=== PATIENT | female | born 1985 | race Caucasian/White ===

== ENCOUNTER 2020-08-26 15:00 | Emergency (ER) | payer SELFPAY ==
[2020-08-26 15:08] VITALS: BP 146/65; PULSE 88; RESP 18; TEMP 36.7; O2SAT 100; BMI 28.3
[2020-08-26 15:11] VITALS: BP 105/60; PULSE 75; RESP 18; TEMP 36.8; O2SAT 100
--- NOTE | 2020-08-26 15:30 | ED_ITS ---
HPI - General: Chief complaint: Vaginal Bleeding Stated complaint: & Spotting (unsure of wks) Time Seen by Provider: 08/26/20 15:29 History of Present Illness: HPI Narrative: Patient is a G5, P4 35-year-old 10 to 12-week female who comes to the ED with vaginal bleeding. Bleeding started today and she describes it as very light spotting. She is also having some intermittent lower abdominal and low back cramping pain. She describes the pain is mild. She has not taken any [id number] pain meds such as Tylenol before coming to the ED and she says she does not need any pain meds here in the ED. Denies any dysuria, hematuria, fever, chills or bowel symptoms. Last menstrual period was June 03. Patient did say she is Rh-negative and has had to get the RhoGam shot in the past with her pregnancies. Associated symptoms: Reports abdominal pain (Lower abdomen cramping); Deny dysuria, headache(s), nausea or vomiting Review of Systems Const: Denies: fever(s), chills or fatigue Eyes: Denies: change in vision or eye discomfort ENMT: Denies: throat pain, odynophagia, nasal discharge or nasal congestion Card: Denies: chest pain, palpitations, edema, swelling of feet/ankles, dyspnea on exertion or orthopnea Resp: Denies: dyspnea, productive cough or non-productive cough GI: Reports: abdominal pain (Lower abdomen cramping); Denies: nausea, vomiting, diarrhea, constipation or hematochezia : Reports: vaginal bleeding (Spotting) and pelvic pain (Mild); Denies: flank pain, difficulty voiding, dysuria, urinary frequency, urinary urgency or hematuria Musc: Denies: neck pain, back pain or extremity swelling Skin/Breast: Denies: rash or new lesions Neuro: Denies: headache(s), numbness in extremities or weakness in extremities Physical Exam Narrative: EXAM NARRATIVE: Patient is healthy looking 35-year-old female that is in no acute distress or pain. She sitting comfortably on exam bed. She had no palpable tenderness over the abdomen. No CVA tenderness. Const: COMMON NORMALS: no acute distress, patient oriented x3, healthy appearing and alert GENERAL APPEARANCE: cooperative and comfortable HENMT: COMMON NORMALS: normocephalic HEAD & SCALP: normocephalic MOUTH: Normal oral and palatal mucosa present THROAT: posterior oropharynx normal and uvula midline Eye: COMMON NORMALS: Equal, round and reactive pupils present PUPIL: Yes Equal, round and reactive pupils present Neck/C-Spine: COMMON NORMALS: supple GENERAL: Yes normal visual inspection Resp: COMMON NORMALS: normal respiratory effort, No retractions, No use of accessory muscles and clear to auscultation bilaterally AUSCULTATION: clear to auscultation bilaterally Cardio: COMMON NORMALS: regular rate, regular rhythm, S1 normal heart sound present, S2 normal heart sound present, No gallops present (Cardio), No clicks present (Cardio), No murmurs present (Cardio) and Peripheral pulses 2+ throughout RATE: regular rate RHYTHM: regular rhythm HEART SOUNDS: S1 normal heart sound present and S2 normal heart sound present PERIPHERAL PULSES: Peripheral pulses 2+ throughout GI: COMMON NORMALS: Normal to inspection, nondistended, normoactive bowel sounds present, Soft to palpation, non-tender and no masses PALPATION: Yes S oft to palpation OTHER: Patient has no palpable abdominal tenderness. : COMMON NORMALS: Yes no CVA tenderness BLADDER/KIDNEY EXAM: Yes no CVA tenderness Back/Pelvis: COMMON NORMALS: no CVA tenderness Extremity: COMMON NORMALS: normal to inspection and no pedal edema Neuro: COMMON NORMALS: patient oriented x3 and moves all extremities SENSORIUM/ORIENTATION: Yes alert Skin: GENERAL SKIN EXAM: dry skin Course Vital Signs: Vital signs: Vital Signs Temperature 98.2 F 08/26/20 17:39 Pulse Rate 80 08/26/20 17:48 Respiratory Rate 14 08/26/20 17:48 Blood Pressure 111/55 08/26/20 17:48 Pulse Oximetry 97 08/26/20 17:39 MDM - OB/Uterine Contractions MDM Narrative: Medical decision making narrative: Patient is a 35-year-old 10-week female comes to the ED with vaginal bleeding. The bleeding is light and described as spotting and started today. Patient says she has had to get the RhoGam shot in each one of her pregnancies. Patient's hCG quant was 68,445. CBC unremarkable. Rh negative. UA was suggestive for UTI. Ultrasound showed a healthy 9-week single intrauterine , with no other acute findings. Patient received RhoGam shot while here in the ED. Patient was diagnosed with spotting during and UTI. She was sent home with a prescription for Macrobid. Return to ED precautions given. Patient will follow up with her OB at next scheduled appointment. Patient understood and agreed with plan. Lab Data: Attestation: I reviewed the patient's lab results. Labs: Lab Results 08/26/20 08/26/20 08/26/20 Range/Units 15:45 15:45 16:00 WBC 8.4 (4.0-10.0) 10^3/ uL RBC 4.34 (4.1-5.3) 10^6/u L Hgb 13.8 (11.5-15.3) g/dL Hct 39.1 (37.0-47.0) % MCV 90.1 (81-99) fL MCH 31.8 (28.0-34.0) pg MCHC 35.3 (30.0-36.0) g/dL RDW 13.0 (12.1-15.1) % Plt Count 276 (130-400) 10^3/c mm MPV 8.6 (7.4-10.4) fL Neut % (Auto) 66.2 % Lymph % (Auto) 26.2 % [place] % (Auto) 5.6 % Eos % (Auto) 1.2 % Baso % (Auto) 0.2 % Neut # (Auto) 5.57 (1.8-7.7) 10^3/u L Lymph # (Auto) 2.2 (0.8-4.8) 10^3/u L [place] # (Auto) 0.5 (0.2-0.9) 10^3/u L Eos # (Auto) 0.1 (0.0-0.8) 10^3/u L Baso # (Auto) 0.0 (0.0-0.1) 10^3/u L Nucleated RBC % (a uto) 0 % Nucleated RBCs # 0.0 /100WBC Ser , Adiel [place]Qnt 61567.00 mIU/mL Urine Color (Yellow) Urine Appearance (CLEAR) Urine pH (5-7) Ur Specific Gravit y (1.005-1.030) Urine Protein (Negative) Urine Glucose (UA) (Normal) Urine Ketones (Negative) Urine Blood (Negative) Urine Nitrate (Negative) Urine Bilirubin (Negative) Urine Urobilinogen (Negative) mg/dL Ur Leukocyte Yoanna ase (Negative) Urine RBC (0-2) /hpf Urine WBC (0-5) /hpf Ur Squamous Epith Cells (0-5) /hpf Amorphous Sediment Urine Bacteria (NONE) /hpf Blood Type A Negative Rho(D) Type Negative Antibody Screen Negative 08/26/20 Range/Units 16:45 WBC (4.0-10.0) 10^3/ uL RBC (4.1-5.3) 10^6/u L Hgb (11.5-15.3) g/dL Hct (37.0-47.0) % MCV (81-99) fL MCH (28.0-34.0) pg MCHC (30.0-36.0) g/dL RDW (12.1-15.1) % Plt Count (130-400) 10^3/c mm MPV (7.4-10.4) fL Neut % (Auto) % Lymph % (Auto) % [place] % (Auto) % Eos % (Auto) % Baso % (Auto) % Neut # (Auto) (1.8-7.7) 10^3/u L Lymph # (Auto) (0.8-4.8) 10^3/u L [place] # (Auto) (0.2-0.9) 10^3/u L Eos # (Auto) (0.0-0.8) 10^3/u L Baso # (Auto) (0.0-0.1) 10^3/u L Nucleated RBC % (a uto) % Nucleated RBCs # /100WBC Ser , Adiel i-Qnt mIU/mL Urine Color Yellow (Yellow) Urine Appearance Cloudy (CLEAR) Urine pH 5 (5-7) Ur Specific Gravit y 1.025 (1.005-1.030) Urine Protein Neg (Negative) Urine Glucose (UA) Norm (Normal) Urine Ketones Negative (Negative) Urine Blood 3+ H (Negative) Urine Nitrate Positive H (Negative) Urine Bilirubin Neg (Negative) Urine Urobilinogen 4 H (Negative) mg/dL Ur Leukocyte Yoanna ase 2+ H (Negative) Urine RBC 5-10 H (0-2) /hpf Urine WBC 15-25 H (0-5) /hpf Ur Squamous Epith Cells 5-10 H (0-5) /hpf Amorphous Sediment Not Reportable Urine Bacteria 4+ H (NONE) /hpf Blood Type Rho(D) Type Antibody Screen Imaging Data^: US OB: Attestation: I personally reviewed and interpreted this imaging study as follows: My impression: US OB report-Healthy 9 week old single intrauterine . No other acute findings. Discharge Plan Discharge Patient Disposition: Home Clinical Impression: Spotting during UTI in Qualifiers: Trimester: first trimester Qualified Code(s): O23.41 - Unspecified infection of urinary tract in , first trimester Condition: Stable Prescriptions: New Macrobid 100 mg capsule 100 mg PO BID 7 Days Qty: 14 RF: 0 No Action Tylenol Extra Strength 500 mg Tablet 1,000 mg PO PRN RF: 0 Gummies 400 mcg-35 mg- 25 mg-5 mg Tablet,Chewable 2 tab PO DAILY RF: 0 Discharge Orders: Discharge ED (Routine); Ordered 08/26/20 Ordered By: Fahad Hernandez Discharge Diet: Regular Discharge Activity: Resume usual activity Patient Instructions: (ED), Urinary Tract Infection in Women (ED) Activity Restrictions/Additional Instructions: Follow-up with your OB at next appointment. take medications as prescribed. Return to the ER or your medical provider if condition worsens. Please read and understand discharge instructions. If any questions, please ask. Coding Level of Care Code ED Rubber Compounder Formulator for Maurizio Fwd Exam Comprehensive
--- NOTE | 2020-08-26 15:37 | USR_ITS ---
PROCEDURE INFORMATION: Exam: US First Trimester, Transabdominal Exam date and time: 08/26/2020 4:10 PM Age: 35 years old Clinical indication: Lmp or gestational age (in weeks): 12 weeks 0 days; Other: Vaginal bleeding; ; Additional info: with vaginal spotting TECHNIQUE: Imaging protocol: Real-time transabdominal obstetrical ultrasound of the maternal pelvis and a first trimester , less than 14 weeks 0 days, with image documentation. COMPARISON: No relevant prior studies available. FINDINGS: Gestation: Intrauterine gestation. pole visualized. Yolk sac not visualized. Embryonic/ heart rate: heart rate is 167 bpm. Placenta: Unremarkable. No subchorionic bleed. Amniotic fluid: Amniotic fluid is normal for gestational age. BIOMETRY: Gestational age (AUA): 12 weeks and 0 days. [place]-Rump length: [place]ge[place]-rump length is 5.3 cm with an EGA of 12 weeks and 0 days. MATERNAL: Uterus: Unremarkable. Cervix: Unremarkable. Right adnexa: Unremarkable. Left adnexa: Unremarkable. Intraperitoneal space: No intraperitoneal free fluid. Other findings: Ovaries not visualized. Adnexa, where visualized, are unremarkable. US/US OB <= 14 weeks fetus [id number] IMPRESSION: Single live intrauterine fetus. EGA based on ultrasound is 12 weeks and 0 days.
[2020-08-26 15:39] VITALS: BP 105/60; PULSE 84; RESP 18; O2SAT 99
[2020-08-26 15:54] LABS: Basophils % 0.2 %; Eosinophils # 0.1 10^3/uL (0.0-0.8); Eosinophils % 1.2 %; Hematocrit 39.1 % (37.0-47.0); Hemoglobin 13.8 g/dL (11.5-15.3); Lymphocytes # 2.2 10^3/uL (0.8-4.8); Lymphocytes % 26.2 %; Mean Corpuscular HGB Conc 35.3 g/dL (30.0-36.0); Mean Corpuscular Hemoglobin 31.8 pg (28.0-34.0); Mean Corpuscular Volume 90.1 fL (81-99); Mean Platelet Volume 8.6 fL (7.4-10.4); Monocytes # 0.5 10^3/uL (0.2-0.9); Monocytes % 5.6 %; Neutrophils # 5.57 10^3/uL (1.8-7.7); Neutrophils % 66.2 %; Nucleated Red Blood Cells % 0 %; Platelet Count 276 10^3/cmm (130-400); Red Blood Count 4.34 10^6/uL (4.1-5.3); White Blood Count 8.4 10^3/uL (4.0-10.0)
[2020-08-26 17:05] LABS: Urine Appearance Cloudy (CLEAR); Urine Color Yellow (Yellow)
[2020-08-26 17:06] LABS: Add Urine Culture? Yes; Bacteria Urine 4+ /hpf; Bilirubin Urine Neg (Negative); Blood Urine 3+ (Negative); Glucose Urine UA Norm (Normal); Ketones Urine Negative (Negative); Leukocyte Esterase Urine 2+ (Negative); Nitrate Urine Positive (Negative); Protein Urine Neg (Negative); Specific Gravity, Urine 1.025 (1.005-1.030); Urobilinogen Urine 4 mg/dL (Negative); WBC Urine 15-25 /hpf (0-5); pH Urine 5 (5-7)
[2020-08-26 17:39] VITALS: BP 111/55; PULSE 78; RESP 18; TEMP 36.8; O2SAT 97
[2020-08-26] MEDS: nitrofurantoin SR (BID) 100 mg Capsule PO (17:47)
[2020-08-26 17:48] VITALS: BP 111/55; PULSE 80; RESP 14
== END 2020-08-26 17:54 | disposition home or self-care (01) ==
PROVIDERS: Emergency Medicine; Emergency Provider Physician Assistant
DX: O26.851 Spotting complicating pregnancy, first trimester (principal); O23.41 Unspecified infection of urinary tract in pregnancy, first trimester; Z3A.09 9 weeks gestation of pregnancy
CPT/HCPCS: 36415; 36430; 76801; 81001; 84702; 85025; 86850; 86900; 87077; 87086; 87186; 90384; 99283

== ENCOUNTER → 2020-12-21 13:58 | Outpatient (BNVA) | payer MEDICAID, SELFPAY | PROVIDERS: Visit Provider Obstetrics & Gynecology | DX: Z34.90 Encounter for supervision of normal pregnancy, unspecified, unspecified trimester (principal); Z12.4 Encounter for screening for malignant neoplasm of cervix | CPT/HCPCS: 80307; 82950; 84315; 85025; 86592; 86762; 86803; 86850; 86900; 87077; 87086; 87184; 87340; 87491; 87591; 87661; 87806; 88175 ==

== ENCOUNTER → 2021-01-01 07:53 | Day surgery (SDC) | payer MEDICAID, SELFPAY ==
[2021-01-01 08:20] VITALS: BP 124/79; PULSE 99; RESP 18; TEMP 36.4; O2SAT 100; BMI 36.3
--- NOTE | 2021-01-01 09:01 | PC.NURSE ---
0849 Gentamicin 240mg given IM in 3 different locations, 2ml each. 1 in right gluteal muscle, 1 in left gluteal muscle, 1 left deltoid muscle. Patient tolerated well.
== END ==
PROVIDERS: Visit Provider Obstetrics & Gynecology
DX: O98.219 Gonorrhea complicating pregnancy, unspecified trimester (principal); O98.819 Other maternal infectious and parasitic diseases complicating pregnancy, unspecified trimester; Z3A.00 Weeks of gestation of pregnancy not specified; A74.9 Chlamydial infection, unspecified; A59.9 Trichomoniasis, unspecified
CPT/HCPCS: 96372; J1580

== ENCOUNTER → 2021-01-04 08:20 | Outpatient (BNVA) | payer MEDICAID, SELFPAY | PROVIDERS: Visit Provider Obstetrics & Gynecology | DX: O09.899 Supervision of other high risk pregnancies, unspecified trimester (principal); Z3A.00 Weeks of gestation of pregnancy not specified | CPT/HCPCS: 82951; 82952 ==

== ENCOUNTER 2021-01-10 17:25 | Outpatient (CLI) | payer MEDICAID, SELFPAY ==
[2021-01-10] VITALS (12 sets, daily range): BP systolic 106–130; BP diastolic 52–68; PULSE 78–91; RESP 17–18; TEMP 35.3–36.6; BMI 35.3
[2021-01-10] MEDS: acetaminophen 500 mg Tablet 1000 MG PO (18:16)
[2021-01-10 19:03] LABS: Add Urine Microscopic? YES; Bilirubin Urine Neg (Negative); Blood Urine Neg (Negative); Glucose Urine UA Norm (Normal); Ketones Urine Negative (Negative); Leukocyte Esterase Urine 2+ (Negative); Nitrate Urine Negative (Negative); Protein Urine Neg (Negative); Specific Gravity, Urine 1.015 (1.005-1.030); Urine Appearance SL Hazy (CLEAR); Urine Color Yellow (Yellow); Urobilinogen Urine 4 mg/dL (Negative); pH Urine 6 (5-7)
[2021-01-10 19:07] LABS: Add Urine Culture? Yes; Bacteria Urine 1+ /hpf; Trichomonas Urine TRACE /hpf; WBC Urine 15-25 /hpf (0-5)
[2021-01-10 19:11] LABS: Alanine Aminotransferase 9 U/L (0-33); Albumin Level 3.4 g/dL (3.5-5.2); Alkaline Phosphatase 96 IU/L (35-105); Anion Gap 13.4 (5-19); Aspartate Amino Transferase 14 U/L (0-32); Blood Urea Nitrogen 7 mg/dL (6-20); Calcium 8.4 mg/dL (8.5-10.5); Carbon Dioxide 24 mmol/L (22-29); Chloride 101 mmol/L (98-107); Globulin 3.3 g/dL (1.3-4.6); Glomerular Filtration Rate 180.6 mL/min (90-130); Glucose 84 mg/dL (65-115); Osmolality Calculated 277 mOsm/kg (285-295); Potassium 3.4 mmol/L (3.5-5.1); Sodium 135 mmol/L (136-145); Total Bilirubin 0.7 mg/dL (0.15-1.2); Total Protein 6.7 g/dL (6.6-8.7); Uric Acid 3.4 mg/dL (2.4-5.7)
[2021-01-10 19:24] LABS: Urine Creatinine 75 mg/dL (28-217); Urine Protein Random 10 mg/dL
[2021-01-10 19:27] LABS: UPRO/UCREAT Ratio 0.13 mg/mg CR
--- NOTE | 2021-01-10 19:47 | PC.NURSE ---
Called lab at this time and asked when CBC would be resulted. wardrobe technician stated that the urine had spilled in the bag and the tube was wet and unable to be ran. wardrobe technician states that tube had to sit out and dry before running but that no one from the lab has called the unit to be informed that the run time will be delayed.
[2021-01-10 19:50] LABS: Basophils % 0.3 %; Eosinophils # 0.1 10^3/uL (0.0-0.8); Eosinophils % 0.8 %; Hemoglobin 10.1 g/dL (11.5-15.3); Lymphocytes # 1.4 10^3/uL (0.8-4.8); Mean Corpuscular HGB Conc 33.7 g/dL (30.0-36.0); Mean Corpuscular Hemoglobin 34.5 pg (28.0-34.0); Mean Corpuscular Volume 102.4 fL (81-99); Mean Platelet Volume 9.1 fL (7.4-10.4); Monocytes # 0.4 10^3/uL (0.2-0.9); Monocytes % 5.9 %; Neutrophils # 4.52 10^3/uL (1.8-7.7); Neutrophils % 70.4 %; Nucleated Red Blood Cells % 0 %; Platelet Count 231 10^3/cmm (130-400); Red Blood Count 2.93 10^6/uL (4.1-5.3); Red Cell Distribution Width 13.9 % (12.1-15.1); White Blood Count 6.4 10^3/uL (4.0-10.0)
== END 2021-01-10 20:26 | disposition home or self-care (01) ==
LOC: OPOB 17:27 → OBGYN 17:29
PROVIDERS: Visit Provider Obstetrics & Gynecology
DX: O26.899 Other specified pregnancy related conditions, unspecified trimester (principal); Z3A.00 Weeks of gestation of pregnancy not specified; R51.9 Headache, unspecified
CPT/HCPCS: 36415; 59025; 80053; 81001; 82570; 84156; 84315; 84550; 85025; 87086; 99211

== ENCOUNTER → 2021-01-24 15:06 | Outpatient (BNVA) | payer MEDICAID, SELFPAY | PROVIDERS: Visit Provider Obstetrics & Gynecology | DX: O09.899 Supervision of other high risk pregnancies, unspecified trimester (principal); O26.899 Other specified pregnancy related conditions, unspecified trimester; N89.8 Other specified noninflammatory disorders of vagina; N90.89 Other specified noninflammatory disorders of vulva and perineum; R30.0 Dysuria; Z3A.00 Weeks of gestation of pregnancy not specified | CPT/HCPCS: 81000; 87086; 87481; 87512; 87529; 87798; 87799 ==

== ENCOUNTER → 2021-01-29 15:35 | Outpatient (BNVA) | payer MEDICAID, SELFPAY | PROVIDERS: Visit Provider Nurse Practitioner Women's Health | DX: O09.899 Supervision of other high risk pregnancies, unspecified trimester (principal); O98.319 Other infections with a predominantly sexual mode of transmission complicating pregnancy, unspecified trimester; A64 Unspecified sexually transmitted disease; O99.280 Endocrine, nutritional and metabolic diseases complicating pregnancy, unspecified trimester; E03.9 Hypothyroidism, unspecified; Z3A.00 Weeks of gestation of pregnancy not specified | CPT/HCPCS: 84315; 84439; 84443; 87491; 87591; 87661 ==

== ENCOUNTER → 2021-02-11 13:31 | Outpatient (BNVA) | payer MEDICAID, SELFPAY | PROVIDERS: Visit Provider Obstetrics & Gynecology | DX: O09.899 Supervision of other high risk pregnancies, unspecified trimester (principal); N90.89 Other specified noninflammatory disorders of vulva and perineum; Z3A.00 Weeks of gestation of pregnancy not specified | CPT/HCPCS: 84315; 87081; 87086; 87252 ==

== ENCOUNTER → 2021-02-18 13:39 | Outpatient (BNVA) | payer MEDICAID, SELFPAY | PROVIDERS: Visit Provider Obstetrics & Gynecology | DX: O09.899 Supervision of other high risk pregnancies, unspecified trimester (principal); E03.9 Hypothyroidism, unspecified; O98.319 Other infections with a predominantly sexual mode of transmission complicating pregnancy, unspecified trimester; A64 Unspecified sexually transmitted disease; Z3A.00 Weeks of gestation of pregnancy not specified | CPT/HCPCS: 84315; 84443; 87086; 87491; 87591; 87661 ==

== ENCOUNTER 2021-02-28 00:21 | Inpatient (IN) | payer MEDICAID, SELFPAY ==
[2021-02-27 22:01] VITALS: BP 113/73; PULSE 101
[2021-02-27 23:00] VITALS: BP 130/67; PULSE 73
[2021-02-28] VITALS (35 sets, daily range): BP systolic 105–136; BP diastolic 52–87; PULSE 64–106; RESP 16–18; TEMP 36.3; O2SAT 87–100; BMI 29.9
[2021-02-28 00:54] LABS: Basophils % 0.1 %; Eosinophils % 0.4 %; Hematocrit 32.4 % (37.0-47.0); Hemoglobin 11.1 g/dL (11.5-15.3); Lymphocytes # 1.2 10^3/uL (0.8-4.8); Lymphocytes % 12.6 %; Mean Corpuscular HGB Conc 34.3 g/dL (30.0-36.0); Mean Corpuscular Hemoglobin 32.6 pg (28.0-34.0); Monocytes # 0.4 10^3/uL (0.2-0.9); Monocytes % 3.7 %; Neutrophils # 7.83 10^3/uL (1.8-7.7); Neutrophils % 82.7 %; Nucleated Red Blood Cells % 0 %; Platelet Count 272 10^3/cmm (130-400); Red Blood Count 3.41 10^6/uL (4.1-5.3); Red Cell Distribution Width 13.1 % (12.1-15.1); White Blood Count 9.5 10^3/uL (4.0-10.0)
[2021-02-28] MEDS: fentaNYL 50 mcg/mL INJ 2mL IVP ×2 (01:05→02:05)
--- NOTE | 2021-02-28 03:21 | PM.OPHPUD ---
Labor & Delivery H&P Update Date of Procedure: February 28, 2021 Date H&P Performed: 02/18/21 H&P update information: I have reviewed H&P completed within last 30 days, I have examined patient prior to procedure and Changes to prior documentation as noted here (cervix: 10/100/+3/VX/SROM) Admission Diagnosis:
--- NOTE | 2021-02-28 03:23 | P.PCNOB_ITS ---
Delivery Note: Date of delivery: February 28, 2021 Pre-delivery diagnoses: Term . Advanced maternal age. Post-delivery diagnoses: Same as above Op report anesthesia: Local (lidocaine for laceration repair) Delivering Physician: Marin Tang MD Estimated blood loss (mL): 300 Findings: Female infant at 38+ weeks, APGARS 8/8, with weight 3640 Pre-Delivery Course: Ms. Huang is a 35 year old patient with an LMP of 06/05/21, JULIANA of 03/10/21, based on 12 week sonogram placing her at 38 3/7 weeks. Has been receiving care from [facility]. She has been experiencing painful uterine contractions for the past 4 hours. Was called by the nurse baby had experienced some decelerations, at the same time the patient had a very rapid progression of labor from 3 cm at admission to fully dilated and delivering the baby in 4 hours. CC: Onset of labor at term. HPI: Received appropriate care. Daily vitamins since the start of care. labs have all been normal, including negative for HIV. She was found to negative for Group B Strep from screening at 36 weeks. She has loss approximately 6 lbs throughout the . She denies a history of HTN during . Glucose tolerance screening for gestational diabetes was negative after 3h GTT. Delivery: The patient was noted to be complete and pushing with rapid progression, so she was placed in the dorsal lithotomy position, prepped and draped in the usual sterile fashion for a vaginal delivery. Pt. Noted to have no anesthesia. At 0254 the patient delivered a term at 38+3 weeks female weighing 3640 g with scores of 8 and 8 at one and five minutes, respectively. The vertex was delivered spontaneously over an intact perineum. The patient was asked to push and the head delivered spontaneously in the JANUSZ position, over an intact perineum. A nuchal cord was checked and none noted. Meconium stain was noted. The anterior shoulder delivered easily and the posterior shoulder followed. The remainder of the was easily delivered and the oropharynx and nasopharynx was bulb suctioned. The infant was noted to have spontaneous cry and spontaneous movement of all four extremities. The cord was clamped x 2 and cut and noted to have 2 arteries and one vein. The was passed to the mother's abdomen where production control coordinating clerk and nursing personnel were in attendance. Cord blood sample was then obtained. The placenta delivered intact spontaneously and the uterus was explored. 20 units of Pitocin was placed in the IV bag to firm the uterus. Examination of the cervix and vaginal vault did not reveal any lacerations. A vaginal pack was then placed. Examination of the perineum showed a second-degree laceration. The laceration was repaired with 2-0 Vicryl in the normal fashion in a running non locking fashion to reapproximate the laceration in layers. The vaginal pack was then removed. The patient tolerated this procedure well, and recovered in LDR. Her infant was transfered to the nursery by production control coordinating clerk. All sponge and needle counts were correct. Post-Delivery Status: Good and hemodynamically stable Coding Level of Care Code Acute Sewing Machine Mechanic for Chg Patrice
--- NOTE | 2021-02-28 08:52 | PC.NURSE ---
DFS notified due to late care.
[2021-02-28] MEDS: ibuprofen 800 mg tablet PO ×3 (09:14→20:51)
[2021-02-28] MEDS: docusate sodium 100 mg Capsule PO (09:14)
[2021-02-28] MEDS: prenatal vitamin Capsule 1 CAP PO (09:14)
--- NOTE | 2021-02-28 12:30 | PC.NURSE ---
DFS school commissioner in room at this time. Plan for home study either later today or tomorrow before discharge.
[2021-02-28 15:50] LABS: Hematocrit 30.9 % (37.0-47.0); Hemoglobin 10.3 g/dL (11.5-15.3); Mean Corpuscular HGB Conc 33.3 g/dL (30.0-36.0); Mean Corpuscular Hemoglobin 32.4 pg (28.0-34.0); Mean Corpuscular Volume 97.2 fl (81-99); Platelet Count 288 10^3/cmm (130-400); Red Blood Count 3.18 10^6/uL (4.1-5.3); Red Cell Distribution Width 13.1 % (12.1-15.1); White Blood Count 12.3 10^3/uL (4.0-10.0)
[2021-02-28 17:24] LABS: Rapid Plasma Reagin Syphilis Reactive (Nonreactive)
--- NOTE | 2021-02-28 19:22 | PC.NURSE ---
Called Lab to confirm FTA-ABS would be run as confirmation for Reactive RPR. Lab employee states send off has been automatically ordered and will be done.
[2021-03-01 04:00] LABS: HIV 1 & 2 Antibody Non-Reactive (Non-Reactiv); HIV 1 & 2 Antigen Non-Reactive (Non-Reactiv)
[2021-03-01 04:16] LABS: Hepatitis B Surface Antigen Non-Reactive (Nonreactive); Hepatitis C Virus Antibody Non-Reactive (Nonreactive)
[2021-03-01 04:57] VITALS: BP 121/57; PULSE 77
[2021-03-01] MEDS: prenatal vitamin Capsule 1 CAP PO (08:44)
[2021-03-01] MEDS: ibuprofen 800 mg tablet PO ×2 (08:44→22:13)
[2021-03-01] MEDS: docusate sodium 100 mg Capsule PO ×2 (08:44→18:30)
[2021-03-01 13:06] VITALS: BP 114/61; PULSE 88; TEMP 36.4; O2SAT 98
[2021-03-01 13:14] VITALS: BP 114/61; PULSE 88; RESP 17; TEMP 36.4; O2SAT 98
--- NOTE | 2021-03-01 13:21 | P.PN_ITS ---
Subjective Subjective: Interval history: Mrs. Huang 35-year-old female G5, P5 is status post spontaneous vaginal delivery day 1 Vitals/I&O/Wt Last Vital Signs Temp 97.6 F 03/01/21 13:14 Pulse 88 03/01/21 13:14 Resp 17 03/01/21 13:14 BP 114/61 03/01/21 13:14 Pulse Ox 98 03/01/21 13:14 Weight last 48 hrs Weight 84.368 kg Physical Exam Narrative: EXAM NARRATIVE: GA; alert and oriented x 3 HEENT: normal Breasts: engorged Nipples - skin intact Lungs; clear to auscultation Heart: regular rhythm, no murmurs. Abd: Appropriately tender. BS+. Uterine fundus below umbilicus. No Fundal Tenderness. Perineum: normal lochia. Extremities: no edema, no cyanosis, no tenderness. Data : 02/28/21 15:30 A&P Assessment and plan (1) Status post vaginal delivery: Mrs Huang status post a spontaneous vaginal delivery day 1. Is afebrile and hemodynamically?stable. Have a positive RPR and FTA?ABS test was ordered. Counseled regarding this results. If FTA?ABS comes back confirming syphilis treatment is indicated. However she is penicillin allergic, desensitization may be required for treatment with penicillin. We will start the patient on doxycycline as an alternative treatment in the meantime until we get the results. Status: Acute (2) Positive RPR test: Status: Acute Attestations Medical Necessity Statement*: My professional opinion per admitting diagnosis. Coding Level of Care Code Acute Breastfeeding Program Coordinator for g Fwd Diagnoses Status post vaginal delivery Positive RPR test A53.0
--- NOTE | 2021-03-01 14:00 | PC.NURSE ---
Spoke with Young in lab, to confirm that the specimen required for the ordered FTA-ABS, send out to [facility], has been received by lab. Young reported that the serum off of the blood that was sent on 02/28/21 would be used. Reported this to Martha Landry RN.
[2021-03-01] MEDS: doxycycline 100 mg Tablet PO (18:30)
[2021-03-01 23:00] VITALS: BP 116/68; PULSE 79; RESP 18; TEMP 36.7
[2021-03-02 02:40] VITALS: BP 108/64; PULSE 73; RESP 18; TEMP 36.4; O2SAT 98
[2021-03-02 05:17] VITALS: BP 96/55; PULSE 74; RESP 16; TEMP 36.5; O2SAT 97
--- NOTE | 2021-03-02 06:36 | P.DS_ITS ---
Discharge Providers Date of Admission: 02/28/21 00:21 Date of Discharge: March 02, 2021 Attending Provider at Admission: Marin Tang MD Attending Provider at Discharge: Marin Tang MD Diagnoses at Discharge Discharge Diagnosis (1) Status post vaginal delivery: Status: Acute (2) Positive RPR test: Status: Acute Reason for Visit Reason for Visit: Abdominal pain Hospital Course Hospital Course The patient was admitted in active labor. She had spontaneous vaginal delivery. , her RPR test came back positive. It had previously been negative. An FTA-ABS confirmatory test was sent. She did well and she was ready for discharge on day #2 Discharge Data Data Completed and Pending: Pending at discharge Category Date Time Status Miscellaneous Mounika t Routine Lab 02/28/21 15:30 Received Miscellaneous Mounika t Routine Lab 03/01/21 00:22 Received Miscellaneous Mounika t Routine Lab 03/01/21 14:07 Ordered Miscellaneous Mounika t Stat Lab 03/01/21 12:13 Ordered Labs from last 24 hours 02/28/21 15:30 Misc Test Referenc e Pending Vitals: Last Vital Signs Temp 97.7 F 03/02/21 05:17 Pulse 74 03/02/21 05:17 Resp 16 03/02/21 05:17 BP 96/55 03/02/21 05:17 Pulse Ox 97 03/02/21 05:17 Discharge Plan Discharge Patient Disposition: Home Condition: Stable Prescriptions: Continued hydroxyzine pamoate [Vistaril] 50 mg capsule 50 mg PO QID PRN (Reason: itching) Qty: 120 RF: 0 levothyroxine 150 mcg capsule 150 mcg PO DAILY Qty: 30 RF: 12 Gummies 400 mcg-35 mg- 25 mg-5 mg Tablet,Chewable 2 tab PO DAILY RF: 0 Discharge Orders: Discharge Order (Routine); Ordered 03/02/21 Ordered By: Chelsea Duggan Patient Instructions: Depression (GEN), Pre-eclampsia and Eclampsia (DC), Bleeding (DC), OB Discharge Report, OB Food/Drug Interaction Guide, Opioid Safety, OB Home Care, OB Proud Parent Packet, OB Vaginal Deliveries - [facility] Discharge Attestations Time Spent in Discharge Care*: less than 30 min Quality Metrics Clinical Quality Measures During this hospital stay, did patient experience: None Coding Level of Care Code Acute Chg FW DC note Diagnoses Status post vaginal delivery Positive RPR test A53.0
--- NOTE | 2021-03-02 07:00 | P.CONIM_ITS ---
Providers/Reason For Consult Consulting Physician/Specialty*: Felipa Quinn MD/Infectious Disease Reason for Consult*: positive RPR Attending Physician: Marin Tang MD History of Present Illness History of Present Illness Laila Huang is a 35 year old female who is status post a spontaneous vaginal delivery on 02/28/2021. She was noted to have a positive RPR titer on 02/28/21 for which infectious disease opinion is currently sought. Review of records shows that patient had RPR testing December 2020 which was negative on 12/21/2020. She denies any past history of syphilis, has been tested multiple times with 4 prior pregnancies and has been negative each time. Her current course was marked for STIs including GC, chlamydia, and trichomonas positive on 12/21 which were treated. Follow-up testing for GC/chlamydia urine NAAT were negative. Her partner was additionally tested for STIs and per patient history and also tested positive for several STDs for which she was treated. She does not know the specific details and does not know if her partner was treated for syphilis as well. She does not know partner's HIV or hepatitis serostatus. She states she has not had intercourse with this partner since June 2020/conception of the current child. She was previously in a monogamous heterosexual relationship for 13 years; latter partner in 2019. In January 2021, she noticed bilateral labial ulcers which were painful. At the time they were thought to be related to HSV, however PCR testing for HSV 1 and 2 eventually returned negative. At the time of delivery no labial lesions were noted. Patient reports that the lesions are better at this present time, however the area continues to be itchy. She was prescribed acyclovir for presumptive diagnosis of HSV, however shortly thereafter she noticed a papular rash over her palms and abdomen, which she thought may be related to acyclovir versus a new body wash that she was using. He discontinued the use of body wash and also stop the acyclovir following which patient states the rash disappeared. On exam today I still see desquamated lesions over the palmar and plantar surfaces. These are not painful. No other rash appreciable over rest of her body. At the time that she was experiencing the above, she states she had subje ctive fever, conjunctival congestion and nasal congestion, which she attributed to hay allergies. Also complains of a headache which are persisted throughout her from first trimester. However states that each has been associated with headache. There is no complaints of any visual disturbances. There is no neck stiffness. Review of Systems General: Reports: 10 or more systems reviewed and unremarkable except in HPI and below Const: Denies: fever(s), chills or body aches Eyes: Denies: change in vision, blurry vision or photophobia ENMT: Reports: hoarseness; Denies: throat pain, enlarged tonsils, odynophagia or nasal congestion Card: Denies: chest pain, palpitations, irregular heart rhythm, edema, swelling of feet/ankles, lightheadedness, pre-syncope, dyspnea on exertion or orthopnea Resp: Denies: dyspnea, productive cough, non-productive cough, wheezing, stridor, pain on inspiration, change in phlegm color, hemoptysis or chest congestion GI: Denies: abdominal pain, nausea, vomiting, hematemesis, coffee ground emesis, dysphagia, heartburn, diarrhea, constipation, GI cramping, change in stool character, hematochezia or melena : Denies: flank pain, difficulty voiding, dysuria, urinary frequency, urinary urgency, urinary hesitancy or hematuria Musc: Denies: neck pain, back pain, extremity pain, joint swelling, joint warmth or deformity Neuro: Denies: headache(s), numbness in extremities, weakness in extremities, sensory changes, difficulty walking, frequent falls, dizziness, vertigo, behavioral changes, Slurred speech present or seizure-like activity Psych: Denies: anxiety, depression, suicidal ideation or homicidal ideation Endo: Denies: polyuria, polydipsia, tired all the time, cold intolerance or hot flashes José Miguel/Lymph: Denies: easy bruising or easy bleeding Meds/Allergies Home Medications and Allergies Home Medications Medication Instructions Recorded Confirmed Last Taken Type Gummies 2 tab PO DAILY 08/26/20 02/28/21 01/01/21 History hydroxyzine pamoate 50 mg capsule 50 mg PO QID PRN #120 cap 01/02/21 02/28/21 Unknown Rx levothyroxine 150 mcg capsule 150 mcg PO DAILY #30 cap 02/19/21 02/28/21 Unknown Rx doxycycline monohydrate 100 mg PO BID 14 Days #28 tab 03/02/21 Unknown Rx Allergies Allergy/AdvReac Type Severity Reaction Status Date / Time acyclovir Allergy Unknown Verified 02/28/21 01:35 Penicillins Allergy ALGY-Anaphy Verified 02/18/21 13:47 laxis PFSH Acute PFSH: Medical History 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 Surgical History History of tonsillectomy Family History Grandmother Breast cancer Maternal Hyperlipidemia Maternal Hypertension Maternal Family/Other Cancer Maternal Aunt - lung Mother Hypertension Denies family history of Colon cancer Ovarian cancer Diabetes Clotting disorder Uterine cancer Thyroid disease Stroke Female Reproductive History: : 5 Vitals/I&O/Wt Last Vital Signs Temp 98.3 F 03/02/21 14:13 Pulse 83 03/02/21 14:13 Resp 14 03/02/21 14:13 BP 119/57 03/02/21 14:13 Pulse Ox 98 03/02/21 14:13 Physical Exam Narrative: EXAM NARRATIVE: General: No acute distress, AO x3 HEENT: PERRLA, pupils bilaterally equal and reactive, pallors not present Chest: Normal vesicular breath sounds, no added sounds, equal good air entry bilaterally CVS: S1-S2 regular, no murmurs, no tachycardia, no gallops, no rubs Abdomen: Soft, nontender, no organomegaly, bowel sounds present Neuro: No focal deficits, no facial deformity, AO x3, power 5/5 in all limbs, no neck stiffness. exam: Deferred in view of immediate state and perineal laceration. A&P Assessment and plan (1) Positive RPR test: Patient with a positive RPR test, history of multiple STDs in the period, and concerning symptoms for early syphilis including genital lesions and rash involving palms and soles, low-grade fever, sore throat and URI type symptoms in DecemberJanuary 2021. Confirmatory testing with FTA-ABS has been sent, results are currently awaited, it is a send out test and may take up to a week to return. Given concerning history as above, agree with the treating presumptively for syphilis while awaiting results of confirmatory testing. Patient reports history of allergy to penicillin as anaphylaxis. Reports she had sepsis shortly after , was given penicillin and developed anaphylaxis and was told never to receive penicillin-containing products again. Though penicillin would be the drug of choice and ideally would prefer to perform allergy testing and/or desensitization, we do not currently have specialist sandblast or shotblast equipment tender or desensitization protocol available at our institution. Given above limitations, recommend to continue treating with doxycycline 100 mg twice daily over the next 14 days for treatment of early syphilis. Ordered for RPR titer, this will be serially followed as outpatient to assess response to treatment. No current concerning signs or symptoms for neurosyphilis. HIV 4th generation screen, Hepatitis C Ab, Hep B sAG non reactive. Plan to follow-up patient in the infectious disease clinic in 2 months. Information additionally provided for Counts include 234 beds at the [facility] Dept STD resources should patient choose to follow up there. Thank you for this consult. Status: Acute Consult Attestations Medical Necessity Statement: per admitting note Coding Level of Care Code Acute [employer] Worker for Maurizio Ibrahim Diagnoses Positive RPR test A53.0
--- NOTE | 2021-03-02 08:19 | PC.NURSE ---
Dr. Quinn at patient bedside at this time.
[2021-03-02] MEDS: prenatal vitamin Capsule 1 CAP PO (09:04)
[2021-03-02] MEDS: doxycycline 100 mg Tablet PO (09:05)
[2021-03-02] MEDS: docusate sodium 100 mg Capsule PO (09:05)
[2021-03-02] MEDS: ibuprofen 800 mg tablet PO (09:05)
[2021-03-02 12:30] VITALS: BP 110/64; PULSE 83; RESP 16; TEMP 36.8; O2SAT 97
[2021-03-02 14:13] VITALS: BP 119/57; PULSE 83; RESP 14; TEMP 36.8; O2SAT 98
== END 2021-03-02 14:15 | disposition home or self-care (01) | DRG 806 ==
LOC: OPOB 00:21 → OBGYN 00:21
PROVIDERS: Obstetrics & Gynecology; Pediatrics; Admitting Provider Obstetrics & Gynecology; Visit Provider Obstetrics & Gynecology
DX: O98.12 Syphilis complicating childbirth (principal); O36.0930 Maternal care for other rhesus isoimmunization, third trimester, not applicable or unspecified; Z37.0 Single live birth; O99.284 Endocrine, nutritional and metabolic diseases complicating childbirth; E03.9 Hypothyroidism, unspecified; O76 Abnormality in fetal heart rate and rhythm complicating labor and delivery; O77.0 Labor and delivery complicated by meconium in amniotic fluid; O70.1 Second degree perineal laceration during delivery; Z3A.38 38 weeks gestation of pregnancy; O75.89 Other specified complications of labor and delivery; G25.0 Essential tremor; Z87.891 Personal history of nicotine dependence; Z88.0 Allergy status to penicillin
CPT/HCPCS: 36415; 59025; 59409; 85025; 85027; 86592; 86694; 86780; 86803; 87340; 87806; 96374; 96375; 99211; J3010

== ENCOUNTER 2021-04-07 21:59 | Emergency (ER) | payer MEDICAID, SELFPAY ==
[2021-04-07 22:02] VITALS: BP 150/69; PULSE 107; RESP 22; TEMP 36.6; O2SAT 100; BMI 32.4
--- NOTE | 2021-04-07 22:10 | ED_ITS ---
HPI - Skin/Abscess/Foreign Bdy General: Chief complaint: Skin/Abscess/Foreign Body Stated complaint: abcess on buttock Time Seen by Provider: 04/07/21 22:10 History of Present Illness: HPI narrative: 35-year-old female comes in with a sore to her right buttocks. Patient reports that she noticed it about [address] and now over the past 3 days it is worsened to the point that has become very tender. Patient appears well. Patient appears no acute distress. 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 Surgical History History of tonsillectomy Family History Grandmother Breast cancer Maternal Hyperlipidemia Maternal Hypertension Maternal Family/Other Cancer Maternal Aunt - lung Mother Hypertension Denies family history of Colon cancer Ovarian cancer Diabetes Clotting disorder Uterine cancer Thyroid disease Stroke Physical Exam Const: COMMON NORMALS: no acute distress and patient oriented x3 GENERAL APPEARANCE: cooperative HENMT: COMMON NORMALS: normocephalic and Normal external nose present HEAD & SCALP: normal to inspection and normocephalic NOSE: Normal external nose present Eye: GENERAL EYE: appearance normal, both eyes and all related structures Neck/C-Spine: COMMON NORMALS: full ROM Chest: COMMONS NORMALS: normal inspection of the chest Resp: COMMON NORMALS: normal respiratory effort EFFORT & INSPECTION: Yes able to speak in complete sentences Cardio: COMMON NORMALS: regular rate and regular rhythm RATE: regular rate RHYTHM: regular rhythm GI: COMMON NORMALS: non-tender Extremity: COMMON NORMALS: normal to inspection Neuro: COMMON NORMALS: patient oriented x3 and moves all extremities Psych: COMMON NORMALS: mental status grossly normal and cooperative Skin: NARRATIVE SKIN EXAM: 10 cm area of redness to the right buttock. There is a central lesion with fluctuance noted within the tissue. Procedures Abscess I/D Site: other (Right buttock) Side (if applicable): right Local Anesthetic: lidocaine 1% and with epi Amount of anesthesia used (mL): 6 Technique: incised with #11 blade Amount of fluid expressed (mL): 5 Irrigation: Yes Packing used?: plain Course Vital Signs: Vital signs: Vital Signs Temperature 97.9 F 04/07/21 22:02 Pulse Rate 107 H 04/07/21 22:02 Respiratory Rate 22 H 04/07/21 22:02 Blood Pressure 150/69 04/07/21 22:02 Pulse Oximetry 100 04/07/21 22:02 MDM - Skin/Abscess/Foreign Bdy MDM Narrative: Medical decision making narrative: 35-year-old female comes in with a sore to the right buttock. On exam we note induration and some mild fluctuance to the right buttock. Differential diagnosis includes but not limited to cellulitis, abscess, local reaction to insect bite. Due to the size and tenderness of the wound I suspect a abscess. Under local anesthetic made a 1 cm incision with a small amount of purulent drainage. Deloculated the wound and put in 4 cm of packing gauze for a wick. Patient tolerated procedure well. Patient will be started on Bactrim for 1 tablet twice a day for 7 days. Peter mmended patient follow-up with primary care for further instruction. Discharge Plan Discharge Patient Disposition: Home Clinical Impression: Abscess of skin or subcutaneous tissue Qualifiers: Site of cutaneous abscess: buttock Qualified Code(s): L02.31 - Cutaneous abscess of buttock Condition: Stable Prescriptions: New Bactrim DS 800-160 mg tablet 1 tab PO BID 7 Days Qty: 14 RF: 0 No Action hydroxyzine pamoate [Vistaril] 50 mg capsule 50 mg PO QID PRN (Reason: itching) Qty: 120 RF: 0 medroxyprogesterone [Depo-Provera] 150 mg/mL syringe 150 mg IM .every 90 days Qty: 1 RF: 5 levothyroxine 150 mcg capsule 150 mcg PO DAILY Qty: 30 RF: 12 Gummies 400 mcg-35 mg- 25 mg-5 mg Tablet,Chewable 2 tab PO DAILY RF: 0 Discharge Orders: Discharge ED (Routine); Ordered 04/07/21 Ordered By: Nate Molina Discharge Diet: Usual diet Discharge Activity: Increase activity as tolerated Patient Instructions: Abscess Incision and Drainage (DC), Opioid Safety Activity Restrictions/Additional Instructions: Take antibiotics twice a day. Take the antibiotic for the next 7 days. Use acetaminophen and ibuprofen for pain. Drink plenty of water with medications. Follow-up with primary care in 3 days for recheck. Return to the emergency department for new concerns. Coding Level of Care Code ED Electrical Calibrator for Maurizio Fwdenver Exam Comprehensive
[2021-04-07] MEDS: sulfamethoxazole-trimeth DS 160-800 mg Tablet 1 TAB PO (22:51)
[2021-04-07] MEDS: HYDROcodone-acetaminophen 5-325 mg Tablet 2 TAB PO (22:51)
[2021-04-07 23:28] VITALS: BP 138/70; PULSE 90; RESP 18; O2SAT 95
== END 2021-04-07 23:31 | disposition home or self-care (01) ==
PROVIDERS: Emergency Provider Nurse Practitioner Family
DX: L02.31 Cutaneous abscess of buttock (principal)
CPT/HCPCS: 10060; 99283

== ENCOUNTER → 2021-04-12 08:22 | Outpatient (BNVA) | payer MEDICAID, SELFPAY | PROVIDERS: Visit Provider Obstetrics & Gynecology | DX: N89.8 Other specified noninflammatory disorders of vagina (principal); A53.0 Latent syphilis, unspecified as early or late; Z30.9 Encounter for contraceptive management, unspecified | CPT/HCPCS: 81025; 87481; 87512; 87798; 87799 ==

== ENCOUNTER 2021-09-03 17:47 | Emergency (ER) | payer MEDICAID, SELFPAY ==
[2021-09-03 17:57] VITALS: BP 139/70; PULSE 111; RESP 16; TEMP 36.8; O2SAT 100; BMI 29.8
--- NOTE | 2021-09-03 18:16 | ED_ITS ---
HPI - General Adult General: Chief complaint: General Medical Stated complaint: eval; possible STD from past Time Seen by Provider: 09/03/21 18:01 History of Present Illness: Patient is a 36-year-old female who comes to the ED with possible STD. She found out today from her significant other that he has been cheating on her and the female he has been with has herpes and trichomonas. Her only symptoms currently are some vaginal itching and burning pain that started approximately a month ago. She did start the Depo shot at that time and thought that that vaginal itching and burning could have been from that. She had HIV testing done within the last year and it was negative. Denies any vaginal bleeding, vaginal lesions or discharge. She reports having syphilis back in February of 2021 and it was fully treated. denies any fever, chills, abdominal pain, dysuria, hematuria, nausea/vomiting. Associated symptoms: Deny chest pain, dyspnea, headache(s), nausea, rash, palpitations or vomiting Review of Systems Const: Denies: fever(s), chills or fatigue Eyes: Denies: change in vision or eye discomfort ENMT: Denies: throat pain, odynophagia, nasal discharge or nasal congestion Card: Denies: chest pain, palpitations, edema, swelling of feet/ankles, dyspnea on exertion or orthopnea Resp: Denies: dyspnea, productive cough or non-productive cough GI: Denies: abdominal pain, nausea, vomiting, diarrhea, constipation or hematochezia : Reports: genital pruritis and other (vaginal burning/irritation); Denies: flank pain, dysuria, hematuria, genital lesions, vaginal bleeding or va ginal discharge Musc: Denies: neck pain, back pain or extremity swelling Skin/Breast: Denies: rash or new lesions Neuro: Denies: headache(s), numbness in extremities or weakness in extremities PFSH ED PFSH: Medical History 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 Surgical History History of tonsillectomy Family History Grandmother Breast cancer Maternal Hyperlipidemia Maternal Hypertension Maternal Family/Other Cancer Maternal Aunt - lung Mother Hypertension Denies family history of Colon cancer Ovarian cancer Diabetes Clotting disorder Uterine cancer Thyroid disease Stroke Physical Exam Const: COMMON NORMALS: no acute distress, patient oriented x3, healthy appearing and alert GENERAL APPEARANCE: cooperative and comfortable HENMT: COMMON NORMALS: normocephalic HEAD & SCALP: normocephalic MOUTH: Normal oral and palatal mucosa present THROAT: posterior oropharynx normal and uvula midline Neck/C-Spine: COMMON NORMALS: supple GENERAL: Yes normal visual inspection Resp: COMMON NORMALS: normal respiratory effort, No retractions, No use of accessory muscles and clear to auscultation bilaterally AUSCULTATION: clear to auscultation bilaterally Cardio: COMMON NORMALS: regular rate, regular rhythm, S1 normal heart sound present, S2 normal heart sound present, No gallops present (Cardio), No clicks present (Cardio), No murmurs present (Cardio) and Peripheral pulses 2+ throughout RATE: regular rate RHYTHM: regular rhythm HEART SOUNDS: S1 normal heart sound present and S2 normal heart sound present PERIPHERAL PULSES: Peripheral pulses 2+ throughout GI: COMMON NORMALS: Normal to inspection, nondistended, normoactive bowel sounds present, Soft to palpation, non-tender and no masses PALPATION: Yes Soft to palpation : COMMON NORMALS: Yes no CVA tenderness BLADDER/KIDNEY EXAM: Yes no CVA tenderness EXTERNAL FEMALE EXAM: Yes normal appearance of the urethra, No erythema and Yes other (No lesions noted) SPECULUM EXAM - VAGINA: No lesion and No Vaginal discharge present Back/Pelvis: COMMON NORMALS: no CVA tenderness Extremity: COMMON NORMALS: normal to inspection Neuro: COMMON NORMALS: patient oriented x3 and moves all extremities SENSORIUM/ORIENTATION: Yes alert Skin: GENERAL SKIN EXAM: dry skin Course Vital Signs: Vital signs: Vital Signs Temperature 98.2 F 09/03/21 17:57 Pulse Rate 82 09/03/21 21:25 Respiratory Rate 17 09/03/21 21:25 Blood Pressure 133/78 09/03/21 21:25 Pulse Oximetry 99 09/03/21 21:25 [facility] - General Adult Medical Decision Making Patient is a 36-year-old female who comes to the ED with concerns for STD. Patient found out today that her significant other had been cheating on her with another female that currently has trichomonas and herpes. Patient's only complaint is vaginal irritation and vaginal itching. Patient has history of syphilis that was fully treated back in February 2021. Denies any genital lesions, vaginal discharge, dysuria, hematuria. Vitals are stable. Female nurse was present in room during exam. Vaginal exam and speculum exam performed. No lesions or discharge noted. gonorrhea and chlamydia swab obtained and is pending. WAQAS wet prep was negative. UA showed no signs of UTI. Urine hCG negative. Patient's RPR was reactive and a FTA lab was ordered and will be sent out to [facility] and is pending. Patient was given prophylactic treatment for gonorrhea and chlamydia with dose of ceftriaxone and azithromycin while here in the ED. She was diagnosed with screening for STD. She was told that the gonorrhea, chlamydia and syphilis tests are all pending and they will will contact her if the results are positive. She has a follow-up appointment with her OB doctor in the next couple weeks. She was given return to ED precautions. Patient understood and agreed with plan. Lab Data I reviewed the patient's lab results. Laboratory Results HCG, Qual Negative (Negative) 09/03/21 19:55 Urine Color Yellow (Yellow) 09/03/21 19:55 Urine Appearance Clear (CLEAR) 09/03/21 19:55 Urine pH 5 (5-7) 09/03/21 19:55 Ur Specific [place] 1.025 (1.005-1.030) 09/03/21 19:55 Urine Protein Neg (Negative) 09/03/21 19:55 Urine Glucose (UA) Norm (Normal) 09/03/21 19:55 Urine Ketones Negative (Negative) 09/03/21 19:55 Urine Blood 2+ (Negative) H 09/03/21 19:55 Urine Nitrate Negative (Negative) 09/03/21 19:55 Urine Bilirubin Neg (Negative) 09/03/21 19:55 Urine Urobilinogen Neg mg/dL (Negative) 09/03/21 19:55 Ur Leukocyte Esterase Trace (Negative) H 09/03/21 19:55 Urine RBC 0-4 /hpf (0-2) H 09/03/21 19:55 Urine WBC 0-4 /hpf (0-5) H 09/03/21 19:55 Ur Squamous Epith Cells 0-4 /hpf (0-5) H 09/03/21 19:55 Amorphous Sediment Not Reportable 09/03/21 19:55 Urine Bacteria Trace /hpf (NONE) 09/03/21 19:55 Urine Mucus 1+ /hpf 09/03/21 19:55 RPR Reactive (Nonreactive) H 09/03/21 20:15 Discharge Plan Discharge Patient Disposition: Home Clinical Impression: Screening for STD (sexually transmitted disease) Condition: Stable Prescriptions: No Action medroxyprogesterone [Depo-Provera] 150 mg/mL syringe 150 mg IM .every 90 days Qty: 1 5RF Discharge Orders: Discharge ED (Routine); Ordered 09/03/21 Ordered By: Fahad Hernandez Discharge Diet: Regular Discharge Activity: Resume usual activity Patient Instructions: Sexually Transmitted Diseases (ED) Activity Restrictions/Additional Instructions: Follow-up with medical provider as directed at your next scheduled appointment. Your gonorrhea and Chlamydia test is pending, but you were prophylactically treated for gonorrhea and chlamydia here in the ED. If they call you with a positive test result you will not need to get further treatment. Return to the ER or your medical provider if condition worsens. Please read and understand discharge instructions. Thank you for choosing [facility] for your healthcare needs today. Skylar salinas realize this is an emergency room and that we are providing you with a medical screening exam and this may not be complete and all inclusive of all the testing and or work up that you may need to determine your ailment or severity of your illness. It is very important that you follow up as instructed or that you return to the Emergency Department should you have concerns or if your condition changes or worsens in any way. Coding Level of Care Code ED Sales Support Administrator for Maurizio Ibrahim Exam Comprehensive
[2021-09-03] MEDS: azithromycin 250 mg Tablet 1000 MG PO (18:57)
[2021-09-03 20:19] LABS: HCG Qualitative Urine. Negative (Negative)
[2021-09-03 20:34] LABS: Add Urine Microscopic? YES; Bilirubin Urine Neg (Negative); Blood Urine 2+ (Negative); Glucose Urine UA Norm (Normal); Ketones Urine Negative (Negative); Leukocyte Esterase Urine Trace (Negative); Nitrate Urine Negative (Negative); Protein Urine Neg (Negative); RBC Urine 0-4 /hpf (0-2); Specific Gravity, Urine 1.025 (1.005-1.030); Squamous Epithelial Cell Urine 0-4 /hpf (0-5); Urine Appearance Clear (CLEAR); Urine Color Yellow (Yellow); Urobilinogen Urine Neg (Negative); WBC Urine 0-4 /hpf (0-5); pH Urine 5 (5-7)
[2021-09-03 20:35] LABS: Add Urine Culture? No; Bacteria Urine TRACE /hpf; Mucus Urine 1+ /hpf
[2021-09-03 21:25] VITALS: BP 133/78; PULSE 82; RESP 17; O2SAT 99
[2021-09-03 21:46] LABS: Rapid Plasma Reagin Syphilis Reactive (Nonreactive)
[2021-09-06 10:43] LABS: Treponema pallidum Ab REACTIVE (NON-REACTIVE)
== END 2021-09-03 21:25 | disposition home or self-care (01) ==
PROVIDERS: Emergency Provider Physician Assistant
DX: Z20.2 Contact with and (suspected) exposure to infections with a predominantly sexual mode of transmission (principal)
CPT/HCPCS: 81001; 81025; 86592; 86780; 87210; 87491; 87591; 96372; 99283; J0696; Q0144

== ENCOUNTER → 2021-09-16 10:04 | Outpatient (BNVA) | payer MEDICAID, SELFPAY | PROVIDERS: Visit Provider Obstetrics & Gynecology | DX: E03.9 Hypothyroidism, unspecified (principal); A53.0 Latent syphilis, unspecified as early or late; N89.8 Other specified noninflammatory disorders of vagina | CPT/HCPCS: 84443; 86780 ==

== ENCOUNTER → 2021-10-16 09:06 | Outpatient (BNVA) | payer MEDICAID, SELFPAY | PROVIDERS: Visit Provider Obstetrics & Gynecology | DX: E03.9 Hypothyroidism, unspecified (principal) | CPT/HCPCS: 84443 ==

== ENCOUNTER 2023-05-01 08:44 | Outpatient (CLI) | payer MEDICAID, SELFPAY ==
--- NOTE | 2023-05-01 08:48 | MM_ITS ---
WS: [id number] Bilateral diagnostic 3D tomosynthesis digital mammogram, 05/01/2023 Clinical Data: RT BR PAIN Comparison: None. Findings: The breast parenchymal pattern shows fibroglandular tissue. No spiculated masses nor clustered calcif ications are seen. There are no secondary signs of carcinoma. There are lymph nodes in both axilla. Impression: 1. Negative bilateral mammograms with no prior exam for review. 2. Right breast ultrasound will be performed. MM/[place] [id number] BIRADS: 1-Negative FOLLOW UP: See Report The CAD fact checker was used.
--- NOTE | 2023-05-01 08:48 | US_ITS ---
WS: [id number] Breast ultrasound, 05/01/2023 Clinical Data: RT BR PAIN Comparison: None. Findings: The right breast was examined at the region of the areola and in the right lateral aspect at 9:00. On ly normal breast tissue could be seen. There are scattered mammary ducts. There were no cysts or mass es. Impression: 1. Negative right breast ultrasound. 2. Recommend return to clinical follow-up. US/US breast RT limited* [id number] BIRADS: 1-Negative FOLLOW UP: See Report
== END 2023-05-01 08:45 | disposition home or self-care (01) ==
LOC: RAD 08:44
PROVIDERS: Visit Provider Nurse Practitioner Family
DX: N64.4 Mastodynia (principal)
CPT/HCPCS: 76642; 77062; G0279